=== PATIENT | male | born 1980 | race Hispanic/Latino ===

== ENCOUNTER 2018-04-15 17:51 | Emergency (ER) | payer OTHER ==
[~2018-04-15] VITALS: Ht 167.6 cm; Wt 127.0 kg
[2018-04-16 00:20] VITALS: BP 133/84
== END 2018-04-16 00:46 | disposition home or self-care (01) ==
LOC: ER 17:51
DX: R60.9 Edema, unspecified (principal); G35 Multiple sclerosis; I10 Essential (primary) hypertension; E11.9 Type 2 diabetes mellitus without complications; I69.854 Hemiplegia and hemiparesis following other cerebrovascular disease affecting left non-dominant side; F17.210 Nicotine dependence, cigarettes, uncomplicated
CPT/HCPCS: 36415; 82948; 93005; 99282

== ENCOUNTER 2018-06-17 18:57 | Emergency (ER) | payer OTHER ==
[~2018-06-17] VITALS: Ht 167.6 cm; Wt 127.0 kg
[2018-06-17 20:20] LABS: BASOPHILS # (AUTO) 0.1 (0.0-0.1); BASOPHILS % 0.5 % (0.0-1.0); EOSINOPHILS # (AUTO) 0.2 (0.0-0.4); HEMOGLOBIN 14.9 g/dL (14.0-18.0); LYMPHOCYTES # (AUTO) 1.5 (1.0-3.2); LYMPHOCYTES % 13.5 % (18.0-39.1); MEAN CORPUSCULAR HEMOGLOBIN 30.7 pg (28-32); MEAN CORPUSCULAR HGB CONC 36.3 g/dL (31-35); MEAN CORPUSCULAR VOLUME 84.5 fL (81-99); MONOCYTES # (AUTO) 0.7 (0.2-0.8); MONOCYTES % 6.5 % (4.4-11.3); NEUTROPHILS # (AUTO) 8.3 (2.1-6.9); PLATELET COUNT 310 x10e3/uL (140-360); RED BLOOD COUNT 4.85 x10e6/uL (4.3-5.7); RED CELL DISTRIBUTION WIDTH 12.4 % (11.7-14.4)
[2018-06-17 20:34] LABS: ALANINE AMINOTRANSFERASE 22 IU/L (0-55); ALBUMIN/GLOBULIN RATIO 0.7 (0.8-2.0); ALKALINE PHOSPHATASE 139 IU/L (40-150); ANION GAP 16.6 mmol/L (8-16); BLOOD UREA NITROGEN 14 mg/dL (7-26); BUN/CREATININE RATIO 13 (6-25); CALCIUM 9.1 mg/dL (8.4-10.2); CARBON DIOXIDE 23 mmol/L (22-29); CHLORIDE 100 mmol/L (98-107); CREATININE, SERUM 1.11 mg/dL (0.72-1.25); EST GLOMERULAR FILTRATION RATE > 60 ML/MIN (60-); GLUCOSE 346 mg/dL (74-118); POTASSIUM 3.6 mmol/L (3.5-5.1); SODIUM 136 mmol/L (136-145)
[2018-06-17] MEDS ORDERED: NEOMYCIN/POLYMYX/BACITR OINT 0.9 GM PKT TOP ONE (23:15)
[2018-06-17 23:19] LABS: CLARITY,URINE HAZY (CLEAR); COLOR,URINE YELLOW (YELLOW)
[2018-06-17 23:20] LABS: BILIRUBIN,URINE NEGATIVE (NEGATIVE); KETONES,URINE NEGATIVE (NEGATIVE); LEUKOCYTE ESTERASE ,URINE NEGATIVE (NEGATIVE); NITRITE,URINE NEGATIVE (NEGATIVE); PROTEIN,URINE DIPSTICK 2+ (NEGATIVE); URINE UROBILINOGEN 0.2 mg/dL (0.2 - 1)
[2018-06-17 23:31] LABS: BACTERIA,URINE FEW /HPF; EPITHELIAL CELLS,URINE RARE /LPF; WBC,URINE (MAN) 0-5 /HPF (0-5)
[2018-06-17 23:32] LABS: YEAST,URINE RARE
[2018-06-17 23:40] VITALS: BP 129/78
[2018-06-17] MEDS ORDERED: TETANUS/DIPHTHERIA TOX ADULT 0.5 ML SYR IM ONE (23:45)
[2018-06-18] MEDS ORDERED: BACTRIM DS TAB1 EACH PO (00:02)
[2018-06-18] MEDS ORDERED: KEFLEX500 MG PO (00:02)
--- OUTSIDE RECORDS SUMMARY | 2018-08-01 03:18 | XMS REPORT | Continuity of Care Document ---
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 No 04/15/18 6:26pm If yes, is advance directive on file with [facility]? No 04/15/18 6:26pm If not on file with [facility] will patient provide a copy? No 04/15/18 6:26pm Do you have a Directive to Physician? No 04/15/18 6:26pm Do you have a Medical Power of [employer] Administrator? No 04/15/18 6:26pm Do you have an out of hospital Do Not Resuscitate Order? No 04/15/18 6:26pm Do you have any special needs we should be aware of? No 04/15/18 6:26pm Do you have a support person here with you today? Yes 04/15/18 6:26pm Did patient receive Notice of Privacy Practices? Yes 04/15/18 6:26pm Did patient receive patient rights and responsibilities? Yes 04/15/18 6:26pm Problems No problem information available. Medications No medication information available. Social History Smoking Status Start Date Stop Date Unknown if ever smoked Hospital Discharge Instructions No hospital discharge instruction information available. Plan of Care Discharge Date 04/16/18 12:46am Disposition HOME, SELF-CARE Condition at Discharge Stable Instructions/Education Provided Dependent Edema Prescriptions See Medication Section Referrals NO,PCP Additional Instructions/Education REST; FOLLOW UP WITH YOUR PCP TOMORROW; RETURN TO ED NEEDED; Functional Status No functional status information available. Allergies, Adverse Reactions, Alerts No known allergies. Immunizations No immunization information available. Vital Signs Acute Vital Signs Vital Response Date/Time Temperature (Fahrenheit) 97.2 degrees F (97.6 - 99.5) 04/16/2018 12:20am Pulse Pulse Rate (adult) 73 bpm (60 - 90) 04/16/2018 12:20am Respiratory Rate 16 bpm (12 - 24) 04/16/2018 12:20am Blood Pressure 133/84 mm Hg 04/16/2018 12:20am Height 5 ft 6 in 04/15/2018 6:00pm Weight 280 lb 04/15/2018 6:00pm Body Mass Index 45.2 kg/m^2 04/15/2018 6:00pm Results Laboratory Results Test Name Result Units Flags Reference Collection Date/Time Result Date/ Time Comments Bedside Glucose 169 mg/dL H 70-120 04/15/2018 11:21pm 04/15/2018 11: 30pm Meter ID: [id number] Procedures No procedure information available. Encounters Encounter Location Arrival/Admit Date Discharge/Depart Date Attending Provider Departed Emergency Room [facility] 04/15/18 5:51pm 12:46am HAYLIE BLACKWELL MD
== END 2018-06-18 00:39 | disposition home or self-care (01) ==
LOC: ER 18:57
DX: S90.822A Blister (nonthermal), left foot, initial encounter (principal); L03.116 Cellulitis of left lower limb
CPT/HCPCS: 36415; 80053; 81001; 85025; 90471; 90714; 99284